=== PATIENT | male | born 1955 | race Caucasian/White ===

== ENCOUNTER → 2021-06-19 10:50 | Outpatient (CLI) | payer OTHER, SELFPAY ==
--- NOTE | 2021-06-19 11:07 | RAD_ITS ---
STUDY: X-RAY - CERVICAL SPINE REASON FOR EXAM: Male, 66 years old. left sided neck pain, left shoulder pain, pain sometimes radiates into left jaw x 4-6 weeks TECHNIQUE: 5 view(s) of the cervical spine were obtained. COMPARISON: None FINDINGS: Normal anterior atlantoaxial articulation. Normal odontoid process. Normal cervical lordosis. There is multi-level endplate spondylosis. Normal disc space heights. Right foraminal narrowing at C3-C4 and C4-C5 due to uncovertebral hypertrophy. There is also mild foraminal narrowing of the left C4-C5, C5-C6 and C6-C7. Right carotid atherosclerosis. RAD/Cerv Spine 4 or 5 Views IMPRESSION: Mild degenerative changes, as above. Electronically Signed: Ralph Umaña MD ([facility]) at 19:18 EST , Service support ,
== END ==
LOC: LAB 10:56 → RAD 11:00
PROVIDERS: PCP Student in an Organized Health Care Education/Training Program; Referring Provider Chiropractor; Visit Provider Chiropractor
DX: S13.4XXA Sprain of ligaments of cervical spine, initial encounter (principal)
CPT/HCPCS: 72050

== ENCOUNTER 2022-07-23 08:27 | Emergency (ER) | payer OTHER, SELFPAY ==
[2022-07-23 08:28] VITALS: BP 200/90; PULSE 81; RESP 18; TEMP 35.9; O2SAT 96; BMI 36.2
--- NOTE | 2022-07-23 08:45 | CT_ITS ---
STUDY: CT CERVICAL SPINE WITHOUT CONTRAST REASON FOR EXAM: Male, 67 years old. Polytrauma RADIATION DOSAGE (If Supplied By Facility): CTDIvol = ( 24.81 ) mGy, DLP = ( 596.33 ) mGycm TECHNIQUE: High resolution transaxial imaging was performed without contrast material. Sagittal and coronal images were reconstructed. Individualized dose optimization techniques were used for this CT. COMPARISON: None FINDINGS: Normal craniovertebral junction. Normal anterior atlantoaxial articulation. Normal odontoid process. Normal cervical lordosis. Normal vertebral bodies and posterior osseous elements. There is no acute fracture. C2-3: Normal endplates. Normal disc height and morphology. Facet spurring on the left. Normal central canal and intervertebral neuroforamina. C3-4: Normal endplates. Normal disc height and morphology. Facet spurring on the right more than the left. Normal central canal and intervertebral neuroforamina. C4-5: Disc bulge. Mild facet spurring. Normal central canal and intervertebral neuroforamina. C5-6: Mild spurring. Mild facet spurring. Normal central canal and intervertebral neuroforamina. C6-7: Mild spurring. Anterior spurring. Normal central canal and intervertebral neuroforamina. C7-T1: Normal endplates. Normal disc height and morphology. Normal central canal and intervertebral neuroforamina. Normal visualized soft tissue structures. CT/Spine Cervical without Contras IMPRESSION: Multilevel degenerative changes, as described above. Electronically Signed: Donato Thomas MD at 10:10 EST ,
--- NOTE | 2022-07-23 08:45 | CT_ITS ---
STUDY: CT BRAIN WITHOUT CONTRAST REASON FOR EXAM: Male, 67 years old. Head injury RADIATION DOSAGE (If Supplied By Facility): CTDIvol = ( 44.99 ) mGy, DLP = ( 897.35 ) mGycm TECHNIQUE: Transaxial CT imaging of the brain was performed without administration of intravenous contrast material. Individualized dose optimization techniques were used for this CT. COMPARISON: No relevant priors. FINDINGS: Normal soft tissue structures. Normal calvarium. There is mild cerebral atrophy with widening of the extra-axial spaces and ventricular dilatation. Normal white matter tracts of the cerebral hemispheres. Normal basal ganglia and thalami. Normal brainstem. Normal cerebellum. There is no intracranial hemorrhage. There are no findings of an acute ischemic infarction. Normal visualized paranasal sinuses. CT/Brain/Head without Contrast IMPRESSION: Chronic involutional changes of the brain. Electronically Signed: Donato Thomas MD at 10:04 EST ,
--- NOTE | 2022-07-23 08:45 | CT_ITS ---
STUDY: CT ABDOMEN AND PELVIS WITH CONTRAST REASON FOR EXAM: Male, 67 years old. Trauma, flank injury RADIATION DOSAGE (If Supplied By Facility): CTDIvol = ( 15.06 ) mGy, DLP = ( 1123.31 ) mGycm TECHNIQUE: Transaxial images were obtained from the dome of the diaphragm to the symphysis pubis without oral contrast. IV 100mL Isovue-370 was administered. Sagittal and coronal images were reconstructed. Individualized dose optimization techniques were used for this CT. COMPARISON: None. FINDINGS: There is lower lung atelectasis. There are coronary artery calcifications. There is hepatomegaly with diffuse hepatic enlargement. There are multiple gallstones. There is mild splenomegaly. Normal pancreas. Normal bilateral adrenal glands. Normal right kidney. There is 1.1 cm cyst of the left kidney. Normal visualized stomach. Normal small intestine. There are a few colonic diverticula consistent with diverticulosis. The appendix is visualized and appears normal. There is diffuse atherosclerotic calcification of the abdominal aorta, without a demonstrated aneurysm. Normal inferior vena cava. Normal retroperitoneum. Normal urinary bladder. There is no free fluid in the abdomen or pelvis. There is a right-sided inguinal hernia containing adipose tissue. There are diffuse degenerative changes of the visualized lumbar spine. There is spondylolisthesis with spondylolysis at L4-5. There is partial sacralization of L5. There is degenerative change of the hips. The sacroiliac spurring and ankylosis. There is acute right 10th rib fracture. CT/Abdomen/Pelvis W IV Cont ONLY IMPRESSION: Right posterior rib fracture. No solid organ injury. No mass or obstruction. Hepatosplenomegaly. Gallstones. No biliary dilatation. Electronically Signed: Donato Thomas MD at 10:24 EST ,
[2022-07-23 09:02] LABS: Absolute Lymphocyte Count 1.04 X10^3/uL (0.83-4.51); Absolute Neutrophil Count 6.6 X10^3/uL (2.0-7.7); Basophil# 0.04 X10^3/uL; Basophil% 0.5 % (0-1); Eosinophil# 0.08 X10^3/uL; Eosinophils% 0.9 % (0-5); Hematocrit 47.1 % (40-54); Hemoglobin 16.1 g/dL (13.0-16.5); Lymphocyte # 1.04 X10^3/ul (0.83-4.51); Lymphocyte % 12.2 % (19-41); Mean Corp Hgb Conc 34.2 g/dL (32-36); Mean Corpuscular Hgb 31.8 pg (27.0-32.0); Mean Corpuscular Volume 93.1 fL (80-94); Mean Platelet Vol. 8.4 fl (6.2-12.0); Monocyte# 0.67 X10^3/uL; Monocyte% 7.9 % (0-10); NRBC Flagged by Analyzer 0 % (0-5); Neutrophil % 77.7 % (47-70); Platelet Count 165 K/mm3 (150-450); RBC Distribution Width CV 12.5 % (11.6-14.6); RBC Distribution Width SD 42.4 fl (35.1-43.9); Red Blood Count 5.06 M/mm3 (4.6-6.2); White Blood Count 8.5 K/mm3 (4.4-11.0)
[2022-07-23 09:11] LABS: International Normalized Ratio 1.1; Prothrombin Time (Protime)PT. 13.8 SECONDS (11.7-14.9)
[2022-07-23 09:12] LABS: Partial Thromboplast Time 29.4 Seconds (24.1-36.2)
[2022-07-23 09:16] LABS: Anion Gap 5 (5-15); BUN 14 mg/dL (7-18); BUN/Creat Ratio 16.5 RATIO (10-20); Calcium,Total 8.8 mg/dL (8.5-10.1); Chloride 106 mmol/L (98-107); Creatinine, Serum 0.85 mg/dL (0.70-1.30); EST Glomerular Filtration Rate 96 mL/min (>60); Est Glom Filt Rate - Afr Amer 116 mL/min (>60); Estimated Creatinine Clearance 89.82 ml/min; Glucose 143 mg/dL (74-106); Potassium 3.8 mmol/L (3.5-5.1); Sodium Level 139 mmol/L (136-145)
--- NOTE | 2022-07-23 10:00 | EDS_ITS ---
HPI HPI - Fall History of Present Illness Chief Complaint: Fall Informant: patient and family Narrative Narrative: Patient brought in by EMS for fall with pain injury occurring 2 days ago. States he turned and stumbled hitting the ottoman right lower back. He hit his head. Denies loss of conscious. No anticoagulation medicines. History of hypertension on medications. Symptoms worsen this morning. EMS arrival status post a total 10 mg of morphine with my discussion prior to arrival. He is more comfortable. Pain worse with movement. Also abrasions of the right arm. PFSH PFS Medical History High blood pressure Home Medications docusate sodium 100 mg capsule (Colace) 100 mg PO DAILY #30 caps 07/23/22 [Rx Last Taken Unknown] lisinopril 20 mg-hydrochlorothiazide 12.5 mg tablet 1 tab PO DAILY 07/23/22 [History Last Taken Unknown] oxycodone-acetaminophen 5 mg-325 mg tablet (Percocet) 1 tab PO Q6H PRN pain 3 days #12 tabs 07/23/22 [Rx Last Taken Unknown] Allergy/AdvReac Type Severity Reaction Status Date / Time No Known Allergies Allergy Verified 07/23/22 08:34 Family History no significant family his Social History Smoking Status: Current every day smoker tobacco type: cigarettes ROS ROS ED Constitutional Constitutional ED: Denies chills, fever(s) or sweats Eyes Eyes: Denies change in vision ENT ENT ED: Denies dysphagia or sore throat Cardiovascular Cardiovascular: Denies chest pain, leg edema, palpitations or racing heartbeat Respiratory/Chest Respiratory/Chest: Denies cough, dyspnea or dyspnea on exertion Gastrointestinal Gastrointestinal: Denies abdominal pain, diarrhea, nausea or vomiting Genitourinary Genitourinary ED: Denies dysuria, hematuria or urinary frequency Musculoskeletal Musculoskeletal: Reports back pain; Denies extremity pain or neck pain Integumentary Denies rash or wounds Neurologic Neurologic: Denies headache(s), paresthesias or weakness EXAM Physical Exam Const Vital Signs: 07/23/22 08:28 07/23/22 08:36 07/23/22 11:56 Temperature 96.6 F L Temperature Source Temporal Pulse Rate 81 80 Respiratory Rate 18 18 Respiratory Effort Normal Blood Pressure 200/90 H 174/80 H Blood Pressure Mean 126 Pulse Ox 96 99 Oxygen Delivery Method Room Air Room Air Positive well nourished and well developed Constitutional Narrative: GCS 15 comfortable with sitting still. General Appearance ED: well developed and NAD HEENT Reports TM's clear, TM's normal bilaterally and moist mucous membranes HEENT Narrative: Small abrasion crown of the head with no hematoma. normocephalic Tympanic Membrane ED: Yes TM's clear Eyes PERRL, EOMs intact bilaterally and conjunctivae normal General Eye ED: Yes normal appearance of both eyes Neck no lymphadenopathy and supple General: Negative for tenderness Chest Wall inspection of chest normal and palpation of chest normal Chest: Negative for tenderness Resp normal respiratory effort and normal air movement Resp Narrative: Symmetric breath sounds. Effort and Inspection: symmetric chest movement; Negative for respiratory distress Cardio regular rate, regular rhythm and no murmurs Peripheral Pulses: pulses 2+ throughout GI normal to inspection, nondistended, normoactive bowel sounds and non-tender Palpation: Negative for guarding or rebound tenderness present Back/Spine Back/Spine Narrative: Right flank tenderness posterior lower ribs CVA. There is ecchymosis on the lower flank region. No spine step-offs. Skin intact. Extremity normal to inspection General Extremety ED: Negative for edema or tenderness General Extremity: Negative for edema Neuro oriented x3 and no sensory deficits noted Sensorium / Orientation: awake and alert Skin Skin Narrative: Right distal forearm abrasion noted at the distal radius. No deformities. No active bleeding. MDM MDM MDM Narrative Medical decision making narrative: Patient more comfortable after morphine given by EMS. Right flank injury with ecchymosis. Trauma scans obtained. Noted acute rib 10 fracture no intra- abdominal process. No Retroperitoneal process.CT head and neck also negative. Labs are stable. He is prescribed incentive spirometer. Short prescription for Percocet and Colace. Reports they will use ibuprofen first and will use opioids if needed. Outpatient follow-up. All questions were answered. Lab Data Attestation: I reviewed the patient's lab results. Labs: Laboratory Results - last 24 hr 07/23/22 07/23/22 07/23/22 08:35 08:35 08:35 WBC 8.5 RBC 5.06 Hgb 16.1 Hct 47.1 MCV 93.1 MCH 31.8 MCHC 34.2 RDW Std Deviation 42.4 RDW Coeff of Andrea 12.5 Plt Count 165 MPV 8.4 Immature Gran % (Auto) 0.800 Neut % (Auto) 77.7 H Lymph % (Auto) 12.2 L Hutchinson % (Auto) 7.9 Eos % (Auto) 0.9 Baso % (Auto) 0.5 Absolute Neuts (auto) 6.6 Absolute Lymphs (auto) 1.04 Nucleated RBC % 0 PT 13.8 INR 1.1 APTT 29.4 Sodium 139 Potassium 3.8 Chloride 106 Carbon Dioxide 28.0 Anion Gap 5 BUN 14 Creatinine 0.85 Estim Creat Clear Calc 89.82 Est GFR (MDRD) Af Amer 116 Est GFR (MDRD) Non-Af 96 BUN/Creatinine Ratio 16.5 Glucose 143 H Calcium 8.8 Radiography Diagnostic Testing: Clinical Impression(s) from Imaging Studies Abdomen/Pelvis CT 07/23/22 08:45 IMPRESSION: Right posterior rib fracture. No solid organ injury. No mass or obstruction. Hepatosplenomegaly. Gallstones. No biliary dilatation. Electronically Signed: Donato Thomas MD at 10:24 EST , Brain CT 07/23/22 08:45 IMPRESSION: Chronic involutional changes of the brain. Electronically Signed: Donato Thomas MD at 10:04 EST , Cervical Spine CT 07/23/22 08:45 IMPRESSION: Multilevel degenerative changes, as described above. Electronically Signed: Donato Thomas MD at 10:10 EST , Discharge Plan Triage Chief Complaint: Fall ED Provider: Nando Bazan Dx/Rx/DC Orders Clinical Impression: Closed rib fracture, Contusion of flank, CHI (closed head injury), Abrasion Instructions: Bruises (Contusions), ED Rib Fracture Prescriptions: New docusate sodium [Colace] 100 mg capsule 100 mg PO DAILY Qty: 30 0RF oxycodone-acetaminophen [Percocet] 5-325 mg tablet 1 tab PO Q6H PRN (Reason: pain) 3 Days Qty: 12 0RF No Action lisinopril-hydrochlorothiazide 20-12.5 mg Tablet 1 tab PO DAILY Primary Care Provider: Tom Brar Referrals: Tom Brar DO [Primary Care Provider] - 1 Week Activity Restrictions/Additional Instructions: CT scan for right rib 10 fracture. No intra-abdominal injuries or findings. CT scan head and neck negative. Take pain medicines as prescribed if needed. Use incentive spirometer every 2 hours while awake. Disposition Disposition: Home, Self Care Discharge Date/Time: 07/23/22 11:57
[2022-07-23 11:56] VITALS: BP 174/80; PULSE 80; RESP 18; O2SAT 99
== END 2022-07-23 11:57 | disposition home or self-care (01) ==
PROVIDERS: Emergency Provider Emergency Medicine; PCP Student in an Organized Health Care Education/Training Program; Visit Provider Emergency Medicine
DX: S09.90XA Unspecified injury of head, initial encounter (principal); S50.811A Abrasion of right forearm, initial encounter; S30.1XXA Contusion of abdominal wall, initial encounter; F17.210 Nicotine dependence, cigarettes, uncomplicated; S22.31XA Fracture of one rib, right side, initial encounter for closed fracture; I10 Essential (primary) hypertension; Z79.899 Other long term (current) drug therapy; W19.XXXA Unspecified fall, initial encounter
CPT/HCPCS: 70450; 72125; 74177; 80048; 85025; 85610; 85730; 96360; 96361; 99285; J7030; Q9967